=== PATIENT | male | born 1980 | race Caucasian/White ===

== ENCOUNTER 2023-04-21 16:05 | Emergency (ER) | payer OTHER, SELFPAY ==
[~2023-04-21] VITALS: Ht 175.3 cm; Wt 73.1 kg
[2023-04-21] MEDS: FLUORESCEIN OPHTH 1MG STRIP OS ONE (18:40)
[2023-04-21] MEDS: PROPARACAINE 0.5% OPHTH SOL 15ML OS ONE (18:40)
[2023-04-21] MEDS: BOOSTRIX VACCINE (TETANUS/DIPHTH/ACEL. PERTUSSIS) 0.5ML SYR IM ONE (18:55)
[2023-04-21] MEDS ORDERED: ERYT5OIN25 OD (19:07)
[2023-04-21 19:12] VITALS: BP 132/92; TEMP 97.8; O2SAT 97
== END 2023-04-21 19:18 | disposition home or self-care (01) ==
LOC: M ED 16:05
DX: T15.01XA Foreign body in cornea, right eye, initial encounter (principal); Z79.2 Long term (current) use of antibiotics; Z23 Encounter for immunization

== ENCOUNTER → 2025-01-01 | Outpatient (REF) | payer SELFPAY ==
[~2025-01-01] MED LIST: ERYT5OIN25 OD
[2025-01-02 12:34] LABS: Trichomonas vaginalis (AMP) NOT DETECTED (NEGATIVE)
[2025-01-02 12:57] LABS: GC DNA AMPLIFICATION NEGATIVE (NEGATIVE)
== END ==
LOC: M LAB REF 12:09
PROVIDERS: ATTEND Student in an Organized Health Care Education/Training Program
DX: R30.0 Dysuria (principal)